=== PATIENT | male | born 1955 | race Caucasian/White ===

== ENCOUNTER 2024-06-01 15:27 | Outpatient (CLI) | payer MEDICARE, SELFPAY ==
--- NOTE | ~2024-06-01 | XR_ITS ---
EXAMINATION: XR chest 2V DATE: 06/01/2024 15:39 INDICATION: Cough, unspecified. TECHNIQUE: Frontal and lateral views of the chest were obtained. COMPARISON: None. FINDINGS: There are patchy airspace opacities in all lung zones bilaterally. No pleural effusion or p neumothorax. The heart size is normal. IMPRESSION: 1. Diffuse lung disease, probably pneumonia. Reviewed, dictated and finalized at location A.
== END 2024-06-01 15:28 | disposition home or self-care (01) ==
PROVIDERS: PCP Family Medicine Adolescent Medicine; Visit Provider Family Medicine Adolescent Medicine
DX: R05.9 Cough, unspecified (principal)
CPT/HCPCS: 71046

== ENCOUNTER 2024-08-03 07:00 | Outpatient (NON) | payer MEDICARE, SELFPAY | END 2024-08-03 07:01 | disposition home or self-care (01) | PROVIDERS: PCP Family Medicine Adolescent Medicine; Visit Provider Internal Medicine Gastroenterology | DX: Z12.11 Encounter for screening for malignant neoplasm of colon (principal); Z86.0100 Personal history of colon polyps, unspecified | CPT/HCPCS: 88305 ==

== ENCOUNTER 2024-08-03 07:29 | Day surgery (SDC) | payer MEDICARE, SELFPAY ==
[2024-05-09 12:08] VITALS: BMI 32.4
--- NOTE | 2024-08-02 15:06 | P.PNAN_ITS ---
Anes - Initial Pre Proc Eval Procedure: Operation Date: 08/03/24 09:30 Proposed Procedures p Diagnostic Colonoscopy - Luis Bartlett MD Date/Time: 08/02/24 15:06 Surgeon: Luis Bartlett MD Pre Op Diagnosis: Family History of Colon CA, HX Colon Polyps Patient Data Age: 68 Gender: M Height: 1.63 m Weight: 78.5 kg Allergies Allergy/AdvReac Type Severity Reaction Status Date / Time No Known Allergies Allergy Verified 08/03/24 08:08 Home Medications ?Medication ?Instructions ?Recorded ?Confirmed ?Type ascorbic acid (vitamin C) 1,000 mg 1 g PO DAILY 11/12/21 08/03/24 History tablet aspirin 81 mg tablet,delayed 81 mg PO .QOD 11/12/21 08/03/24 History release (Adult Aspirin Regimen) mecobalamin (vitamin B12) 1,000 1,000 mcg sublingual DAILY 09/17/22 08/03/24 History mcg disintegrating tablet,sublingual lorazepam 1 mg tablet 1 mg PO TID PRN anxiety #10 tabs 09/27/23 08/03/24 Rx atorvastatin 20 mg tablet See Rx Instructions .Route 12/07/23 08/03/24 Rx .COMPLEX #90 tabs tamsulosin 0.4 mg capsule 0.4 mg PO DAILY 05/05/24 08/03/24 History trazodone 100 mg tablet 100 mg PO QHS PRN insomnia #30 tabs 05/30/24 08/03/24 Rx Patient hx anesthesia problems: none Family hx anesthesia problems: none Results Review: All pre-operative results and documents have been reviewed as part of the pre- operative evaluation. [facility] Past Medical History Medical History (Updated 08/03/24 @ 08:39 by Luis Bartlett MD) Pure hypercholesterolemia, unspecified Abnormal colonoscopy 01/31 2 polyps Surgical History Surgical History History of bilateral inguinal hernia repair Left in 1990 Family History Family History Father Acute myocardial infarction Mother Carcinoma of colon Sibling Acute myocardial infarction Social History Social History (Updated 05/05/24 @ 08:26 by Batsheva Gardner [facility]) Smoking status: Never smoker Second hand tobacco smoke exposure: No Alcohol intake: current Drinks per week: 30 Substance use: never Substance use type: does not use Do You Feel Safe in your Home?: Yes Lack of Transportation: No Lack of Food: Never True Current Housing: I Have Housing Concerned About Future Housing: No Difficulty Paying Gas/Electric Bills: No Difficulty Paying for Meds: No Currently Unemployed: No Education: High School Diploma/GED Difficulty w/ Childcare or Family Care: No Living arrangements: alone Occupation/Education: retired Gender identity (if verbalized by the patient): Male Sexual Orientation (if Verbalized by the Patient): Straight or Heterosexual Spiritual care concerns: No Agree to blood products: Yes Anes - Eval Final PreProcedure Day of Procedure 08/02/24 15:06 Patient weight: obese Heart: regular rate and rhythm Lungs: clear to auscultation Airway: Mallampati scale class II Neurological: alert and oriented Last oral intake: >/= 8 hours ASA classification: III Emergent: no Anesthetic plan: proceed Anesthesia type and monitoring: general GIVS and standard monitoring Results Review: All pre-operative results and documents have been reviewed as part of the pre- operative evaluation. Informed Consent: The patient's anesthetic plan and its attendant risks and benefits were discussed with the patient/family/POA. Questions were solicited and answers provided to the satisfaction of the patient/family/POA.
[2024-08-03 08:19] VITALS: BP 174/99; PULSE 86; RESP 20; TEMP 36.3; O2SAT 97; BMI 30.6
[2024-08-03] MEDS: LACTATED RINGERS 1,000 ML 150 ML IV CONT (08:34)
--- NOTE | 2024-08-03 08:37 | PM.HPGS ---
History of Present Illness History of Present Illness Consent: Risks, benefits, and alternatives have been discussed and questions answered. Patient agrees to proceed with procedure. Chief complaint: Family History of Colon CA, HX Colon Polyps Narrative: David Cui is a 68 year old male presents for screening colonoscopy. Patient's current meds are normal. Patient denies abdominal pain. He has had no bleeding. Family history is significant patient's mother had colon cancer. Patient reports he may have had several small polyps at the time of last colonoscopy in 2018. Review of Systems Review of Systems: All systems reviewed & are unremarkable except as noted in HPI and below PMFSH Past Medical History Medical History (Updated 08/03/24 @ 08:39 by Luis Bartlett MD) Pure hypercholesterolemia, unspecified Abnormal colonoscopy 01/31 2 polyps Surgical History Surgical History History of bilateral inguinal hernia repair Left in 1990 Family History Family History Father Acute myocardial infarction Mother Carcinoma of colon Sibling Acute myocardial infarction Social History Social History (Updated 05/05/24 @ 08:26 by Batsheva Gardner [facility]) Smoking status: Never smoker Second hand tobacco smoke exposure: No Alcohol intake: current Drinks per week: 30 Substance use: never Substance use type: does not use Do You Feel Safe in your Home?: Yes Lack of Transportation: No Lack of Food: Never True Current Housing: I Have Housing Concerned About Future Housing: No Difficulty Paying Gas/Electric Bills: No Difficulty Paying for Meds: No Currently Unemployed: No Education: High School Diploma/GED Difficulty w/ Childcare or Family Care: No Living arrangements: alone Occupation/Education: retired Gender identity (if verbalized by the patient): Male Sexual Orientation (if Verbalized by the Patient): Straight or Heterosexual Spiritual care concerns: No Agree to blood products: Yes Meds Home Medications and Allergies Home Medications ?Medication ?Instructions ?Recorded ?Confirmed ?Type ascorbic acid (vitamin C) 1,000 mg 1 g PO DAILY 11/12/21 08/03/24 History tablet aspirin 81 mg tablet,delayed 81 mg PO .QOD 11/12/21 08/03/24 History release (Adult Aspirin Regimen) mecobalamin (vitamin B12) 1,000 1,000 mcg sublingual DAILY 09/17/22 08/03/24 History mcg disintegrating tablet,sublingual lorazepam 1 mg tablet 1 mg PO TID PRN anxiety #10 tabs 09/27/23 08/03/24 Rx atorvastatin 20 mg tablet See Rx Instructions .Route 12/07/23 08/03/24 Rx .COMPLEX #90 tabs tamsulosin 0.4 mg capsule 0.4 mg PO DAILY 05/05/24 08/03/24 History trazodone 100 mg tablet 100 mg PO QHS PRN insomnia #30 tabs 05/30/24 08/03/24 Rx Allergies Allergy/AdvReac Type Severity Reaction Status Date / Time No Known Allergies Allergy Verified 08/03/24 08:08 Vital Signs Vital Signs - 24 hr 08/03/24 08:19 Temperature 97.4 F L Pulse Rate 86 Respiratory Rate 20 Blood Pressure 174/99 H Pulse Oximetry 97 Oxygen Delivery Room Air Exam Narrative: Physical exam reveals patient to be alert. Vital signs stable. HEENT exam is unremarkable. Patient is anicteric. Lungs are clear to auscultation and to percussion. Heart is without murmur or extra sounds. Abdomen bowel sounds are present soft nontender with no organomegaly. Digital external rectal exam normal. Assessment and Plan Assessment and plan (1) Hx of colonic polyps: Onset Date: ~01/2018 Code(s): Z86.010 - Personal history of colon polyps Status: Acute Assessment and Plan: Patient is reported to have had colon polyps at time of previous colonoscopy 5 years ago. Plan for surveillance colonoscopy at 5 year intervals. (2) Family history of colon cancer in mother: Code(s): Z80.0 - Family history of malignant neoplasm of digestive organs Status: Acute Assessment and Plan: Patient's mother suggest follow-up screening colonoscopy at 5 year intervals.
[2024-08-03 09:33] VITALS: BP 136/79; PULSE 79; RESP 14; O2SAT 97
[2024-08-03 09:43] VITALS: BP 137/87; PULSE 72; RESP 16; O2SAT 98
[2024-08-03 09:53] VITALS: BP 143/85; PULSE 727; RESP 16; O2SAT 99
--- NOTE | 2024-08-03 10:44 | WPDANESPN ---
Anes - Prog Note Post-Op Date/Time: 08/03/24 10:44 Cardiovascular status: normal Respiratory status: normal Airway patency: baseline Mental status: baseline Post-Op hydration status: normal Vital Signs: Last Vital Signs Temp 36.3 C L 08/03/24 08:19 Pulse 727 H 08/03/24 09:53 Resp 16 08/03/24 09:53 BP 143/85 H 08/03/24 09:53 Pulse Ox 99 08/03/24 09:53 O2 Del Method Room Air 08/03/24 09:53 Pain Score (VAS): 0 I/O: Intake & Output 08/02/24 08/03/24 08/03/24 23:59 07:59 15:59 Intake Total 450 Balance 450 Post-procedural complaints: none Patient Feedback: Patient satisfied with anesthetic care. Other Findings: Patient vital signs back to baseline. Patient denies nausea and vomiting. Patient's pain under control. Patient OK for discharge.
== END 2024-08-03 10:08 | disposition home or self-care (01) ==
PROVIDERS: PCP Family Medicine Adolescent Medicine; Visit Provider Internal Medicine Gastroenterology
PROC: 0DJD8ZZ Inspection of Lower Intestinal Tract, Via Natural or Artificial Opening Endoscopic (ICD-10-PCS; CPT 45378; principal; 2024-08-03 09:30)
DX: Z86.0100 Personal history of colon polyps, unspecified (principal); D12.3 Benign neoplasm of transverse colon; D12.8 Benign neoplasm of rectum; K64.8 Other hemorrhoids
CPT/HCPCS: 45385